=== PATIENT | male | born 1965 | race Caucasian/White ===

== ENCOUNTER 2025-05-23 08:51 | Outpatient (CLI) | payer BC ==
[2025-05-23] MEDS ORDERED: Iopamidol 300 61% 100 ML VIAL FS ONE (10:04)
== END 2025-05-23 08:52 | disposition home or self-care (01) ==
LOC: CSHCT 08:51
PROVIDERS: ATTEND Emergency Medicine
DX: R05.3 Chronic cough (principal); R49.0 Dysphonia; J98.4 Other disorders of lung; R59.1 Generalized enlarged lymph nodes
CPT/HCPCS: 70491; 71260; Q9967